=== PATIENT | male | born 1975 | race Caucasian/White ===

== ENCOUNTER 2023-06-01 00:40 | Emergency (ER) | payer OTHER, SELFPAY ==
[2023-06-01 00:43] VITALS: BP 132/90; PULSE 80; TEMP 36.7; O2SAT 99; BMI 31.6
--- NOTE | 2023-06-01 01:02 | ED.WOUNDLAC1 ---
HPI - Wound/Laceration General Chief Complaint: Wound/Laceration Stated Complaint: R MIDDLE FINGER LACERATION [facility] Time Seen by Provider: 06/01/23 00:58 Source: patient Mode of arrival: walk-in Limitations: no limitations History of Present Illness HPI narrative: This 48-year-old male who is right-hand dominant presents for evaluation of a laceration on the volar aspect of his right middle finger between his PIP and DIP joint. He cut his finger on a piece of sharp metal. There is no numbness or tingling. Bleeding was controlled prior to arrival. He does not know the date of his last tetanus shot. Related Data Home Medications ?Medication ?Instructions ?Recorded ?Confirmed No Known Home Medications 06/01/23 06/01/23 Allergies Allergy/AdvReac Type Severity Reaction Status Date / Time No Known Drug Allergies Allergy Verified 06/01/23 00:50 Review of Systems ROS Status of ROS 10 or more systems reviewed and unremarkable except as noted in history and below Exam Narrative Exam Narrative: Nurses note and vital signs reviewed and patient is not hypoxic. General: The patient appears well and in no apparent distress. Patient is resting comfortably on cart. Skin: Warm, dry, no pallor noted. There is no rash noted. Head: Normocephalic, atraumatic Eye: Normal conjunctiva, no drainage, EOMI. PERRL Cardiovascular: Regular Rate and Rhythm Respiratory: Patient is in no distress, no accessory muscle use, lungs are clear to auscultation, no wheezing, rales or rhonchi Musculoskeletal: 1.5 cm laceration to RMF between the PIP and DIP joint, no apprec tendon injury, able to flex and extend at MCP, DIP and PIP joints, distal sensation is intact Neurological: A&O x4, normal speech Psychiatric: Cooperative Constitutional Vital Signs, click to edit/add: Last Vital Signs Temp 98.0 F 06/01/23 00:43 Pulse 80 06/01/23 00:43 Resp 16 06/01/23 00:43 BP 132/90 06/01/23 00:43 Pulse Ox 99 06/01/23 00:43 Course Vital Signs Vital signs: Vital Signs Temperature 98.0 F 06/01/23 00:43 Pulse Rate 80 06/01/23 00:43 Respiratory Rate 16 06/01/23 00:43 Blood Pressure 132/90 06/01/23 00:43 Pulse Oximetry 99 06/01/23 00:43 Temperature 98.0 F 06/01/23 00:43 Pulse Rate 80 06/01/23 00:43 Respiratory Rate 16 06/01/23 00:43 Blood Pressure 132/90 06/01/23 00:43 Pulse Oximetry 99 06/01/23 00:43 MDM - Wound/Laceration MDM Narrative Medical decision making narrative: Procedure note: Right middle finger laceration repair; the patient's hand was soaked in warm Hibiclens solution, digital block was performed with 1 percent lidocaine. When anesthesia was obtained the wound was explored. After opening it up it was apparent that there was a small arterial bleeder. 7, 3-0 Ethilon sutures were placed into the wound edges with good wound edge approximation. Patient tolerated procedure well. A bacitracin dressing was placed by the nursing staff and tetanus was updated. Wound instructions were given to the patient. Discharge Plan Discharge Stand Alone Forms: Portal Instructions Chief Complaint: Wound/Laceration Clinical Impression: Laceration of finger Patient Disposition: Home, Self-Care Time of Disposition Decision: 01:39 Condition: Good Prescriptions / Home Meds: No Action No Known Home Medications Print Language: Maori Instructions: Care For Your Stitches (ED), Laceration (ED) Additional Instructions: Sutures can be removed in 10-12 days. You can go to your family doctor, return to the emergency department, urgent care or [facility] for suture removal. Referrals: Physician,Non-Staff, [Primary Care Provider] - 1 week
[2023-06-01] MEDS: LIDOCAINE HCL 1% 100 MG/10 ML MDV INJ (01:16)
[2023-06-01] MEDS: ADACEL DIPH,PERTUSS(ACELL),TET VAC/PF 0.5 ML ADULT SYRINGE IM (01:16)
[2023-06-01] MEDS: BACITRACIN OINTMENT 28.4 GM TUBE 1 APPLIC TOPICAL (02:32)
== END 2023-06-01 02:48 | disposition home or self-care (01) ==
PROVIDERS: Emergency Provider Emergency Medicine; PCP Nurse Practitioner
DX: S61.212A Laceration without foreign body of right middle finger without damage to nail, initial encounter (principal); W26.9XXA Contact with unspecified sharp object(s), initial encounter
CPT/HCPCS: 12001; 90471; 90715; 99284